=== PATIENT | male | born 1945 | race Caucasian/White ===

== ENCOUNTER → 2025-03-16 14:25 | Outpatient (CLI) | payer MEDICARE, OTHER, SELFPAY ==
--- NOTE | 2025-03-16 14:31 | DI.NM.S_ITS ---
PROCEDURE: NM EMERITA PERF SPECT R&S PHARM Rest and pharmacological stress myocardial perfusion SPECT with gated imaging and ejection fraction RADIOPHARMACEUTICAL: 24.9 mCi Tc-99m tetrafosmin IV at rest and 26,2 mCi Tc-99m tetrafosmin IV at peak effect of pharmacological stress. [id number]-[id number] was performed. INDICATIONS: atrial fibrillation TECHNIQUE: Radiopharmaceutical was injected at peak stress test, and also at rest. SPECT images were obtained. SPECT myocardial perfusion images were displayed in short axis, horizontal long axis, and vertical long axis views. Gated images were reviewed using Outcome Referrals software. COMPARISON: None. CARDIAC STRESS: A pharmacologic stress test was performed under the supervision of an attending staff, using an infusion of lexiscan 0.4mg IV X1. Hemodynamic data: There is normal blood pressure and heart rate response to pharmacologic stress. Symptoms: The patient denied anginal chest pain. Aminophylline: none EKG: Atrial fibrillation present during the study. Frequent PVCs present during the study. No diagnostic ST changes with lexiscan. FINDINGS: Raw data: There is good myocardial uptake of radiotracer. No significant motion artifacts. Vhft-rl-notip ratio is 0.25 (normal is less than 0.38 for tetrafosmin tracer). Left ventricle function: Gated images demonstrate normal left ventricular wall thickening. No segmental wall motion abnormalities. No transient ischemic dilation; TID is 0.97 (normal less than 1.3). Left ventricle resting end diastolic volume is 132 mL. Left ventricle stress ejection fraction is 57%; normal range is above 45%. Myocardial perfusion: There are mildly intense fixed inferior wall and basal lateral wall defects that resolve with prone imaging, suggesting artifact. IMPRESSION: Low risk, normal pharm nuclear stress test from inducible ischemia standpoint. 1) There are mildly intense fixed inferior wall and basal lateral wall defects that resolve with prone imaging, suggesting artifact. 2) Normal left ventricular size, wall motion, and systolic function (EF post stress 57%). 3) Atrial fibrillation present during the study. 4) No angina during the study. 5) No prior nuclear stress test available for comparison. Dictated by: Jumana Maguire MD on 03/22/2025 at 14:09 Approved by: Jumana Maguire MD on 03/22/2025 at 14:12
== END ==
PROVIDERS: PCP Specialist; Referring Provider Specialist; Visit Provider Student in an Organized Health Care Education/Training Program
DX: I48.91 Unspecified atrial fibrillation (principal)
CPT/HCPCS: 78452; 93017; A9502; J2785